=== PATIENT | male | born 1965 | race American Indian/Alaskan Native ===

== ENCOUNTER 2019-06-13 08:17 | Day surgery (SDC) | payer OTHER ==
[~2019-06-13 08:17] MED LIST: NACL 0.9% 1000 ML 1,000 ML IV SCH
[2019-06-13] MEDS ORDERED: DIPRIVAN 10 MG/ML IV ONE ×3 (09:29)
[2019-06-13] MEDS ORDERED: VERSED ONE (09:29)
[2019-06-13] MEDS ORDERED: SUBLIMAZE ONE (09:29)
[2019-06-13] MEDS ORDERED: XYLOCAINE MPF 2% ONE (10:00)
--- NOTE | 2019-06-13 10:02 | Procedure Note ---
Date of procedure: 06/13/19 Pre-op diagnosis: GERD/ Colon Polyp Screening Post-op diagnosis: other (Moderate,Distal Erosive Esophagitis/Gastritis/No Colon Polyps noted/ Minor,Left Colon Diverticuli/Minor,Internal Hemorrhoid) Procedure: EGD with Biopsy and Colonoscopy Anesthesia: MAC Surgeon: MICHELLE MELÉNDEZ Estimated blood loss: minimal Pathology: list Specimen disposition: to lab Condition: stable Disposition: same day (Treat with PPI,encourage fiber intake and avoid aspirin and NSAID and follow up in 1 to 2 weeks ([phone]).)
--- NOTE | 2019-06-13 10:19 | Operative Report ---
PROCEDURE: EGD with biopsy. INDICATIONS: This is a 54-year-old -[place] gentleman with an underlying history of diabetes, hypertension, who has been having GERD symptoms. EGD was done to assess for the GERD symptoms. DESCRIPTION OF PROCEDURE: Procedure was done after getting informed consent with MAC anesthesia. Instrument was passed through the hypopharynx into the esophagus, which showed moderate distal erosive esophagitis. Biopsy was done from the distal esophagus. Stomach showed gastritis and antral erosion. Biopsy was additionally done from the gastric antrum, gastric body and angular incisura. There was minimal bleeding from the biopsy sites. No complications associated with the procedure. The pylorus was patent. The duodenum in the first and the second portion appeared normal. ASSESSMENT: Gastroesophageal reflux disease symptoms, moderate distal erosive esophagitis, gastritis, gastric erosion. No peptic ulcer disease noted. Patent pylorus. PLAN: Plan is to treat the patient with PPI. Colonoscopy will also be done as part of colon polyp screening. The patient will be asked to avoid aspirin and aspirin-related products for the next few days and follow up in the office in 1-2 weeks' time. Procedure was done in the GI lab with assistance of anesthesia and in the presence and assistance of the GI lab team, which included DRU Dodson and Nallely hartmann. Again, there was minimal bleeding and no complications associated with the procedure. [facility]# [id number] LEONOR/DAVID
--- NOTE | 2019-06-13 11:17 | Anesthesia Day of Surgery ---
Anesthesia Day of Surgery - Day of Surgery Patient Examined: Yes Patient H&P Reviewed: Yes Patient is NPO: Yes
--- NOTE | 2019-06-13 11:18 | Anesthesia Consultation ---
Anesthesia Consult and Med Hx Date of service: 06/13/19 - Airway Anesthetic Teeth Evaluation: Partials ROM Head & Neck: Adequate Mental/Hyoid Distance: Adequate Mallampati Class: Class I Intubation Access Assessment: Probably Good - Pulmonary Exam CTA: Yes - Cardiac Exam Cardiac Exam: RRR - Pre-Operative Health Status ASA Pre-Surgery Classification: ASA2 Proposed Anesthetic Plan: MAC - Cardiovascular System Hx Hypertension: Yes - Endocrine Hx Non-Insulin Dependent Diabetes: Yes
[2019-06-13 13:14] VITALS: BP 124/83
--- NOTE | 2019-06-13 14:53 | Operative Report ---
PROCEDURE: Colonoscopy. INDICATIONS: This is a 54-year-old -[place] gentleman with an underlying history of diabetes, hypertension who had a colonoscopy done as part of colon polyp screening. He had an EGD done because of GERD symptoms prior to the colonoscopy, which showed presence of moderate distal erosive esophagitis, gastritis and gastric erosion. DESCRIPTION OF PROCEDURE: Colonoscopy was done after getting informed consent. Initial rectal exam was unremarkable. Instrument was passed through the rectum onto the cecum, which was identified by ileocecal valve and appendiceal orifice. The scope was retroflexed in the cecum to get a better view and also withdrawn to the hepatic flexure in the straight view and reintroduced to the cecum. No additional pathology was noted in the cecum or the ascending colon. The cecum, ascending colon, transverse colon showed normal mucosa. There were a few minor diverticula noted in the left colon and the rectum showed minor internal hemorrhoid on the retroverted view. No biopsies were done. There was no bleeding or complications associated with the colonoscopy. ASSESSMENT: Colon polyp screening. No colon polyps noted. Few left colon diverticula, minor internal hemorrhoid. The patient will be encouraged to take fiber supplements because of the upper EGD findings of distal erosive esophagitis, gastritis. The patient will also be placed on Protonix and asked to avoid aspirin and aspirin-related products for the next few days. The patient will be asked to follow up in the office in 1-2 weeks' time. The procedure was done in the GI lab with the assistance of anesthesia and in the presence and assistance of the GI lab team, which included DRU Dodson and Barbie hartmann. JOB# [id number] LEONOR/DAVID
== END 2019-06-13 08:18 | disposition home or self-care (01) ==
LOC: GIO 08:17
DX: Z12.11 Encounter for screening for malignant neoplasm of colon (principal); K57.30 Diverticulosis of large intestine without perforation or abscess without bleeding; K64.8 Other hemorrhoids; K29.50 Unspecified chronic gastritis without bleeding; K21.0 Gastro-esophageal reflux disease with esophagitis; K31.89 Other diseases of stomach and duodenum; I10 Essential (primary) hypertension; E11.9 Type 2 diabetes mellitus without complications; M33.11 Other dermatomyositis with respiratory involvement; E66.9 Obesity, unspecified; I25.10 Atherosclerotic heart disease of native coronary artery without angina pectoris; E78.00 Pure hypercholesterolemia, unspecified; Z68.41 Body mass index [BMI] 40.0-44.9, adult; Z79.899 Other long term (current) drug therapy
CPT/HCPCS: 43239; 45378; 82962; 88305; 88342; J2250; J2704; J3010; J7030